=== PATIENT | female | born 1965 | race Caucasian/White ===

== ENCOUNTER 2024-10-15 16:57 | Emergency (ER) | payer OTHER, SELFPAY ==
--- NOTE | ~2024-10-15 | XR_ITS ---
HISTORY: fall, slip on ice COMPARISON: None TECHNIQUE: 4 views of the right knee were wrist were performed. FINDINGS: No acute fracture is identified. Cortical irregularity within the right scaphoid. Query prior fracture? The carpal arcs are intact. Mild radiocarpal joint space narrowing with sclerosis of the distal radius is present. The remaining visualized joint spaces are otherwise preserved. Bone mineralization is unremarkable. Moderate soft tissue swelling is noted. No radiopaque foreign body is identified. IMPRESSION: Cortical irregularity within the right mid scaphoid bone for which prior fracture deformity is suspec aleksander. Noncontrast enhanced CT may be performed (along with the patient history) for confirmation. Moderate soft tissue swelling, without additional bony abnormality appreciated. Reviewed, dictated and finalized at location A. ND SUPPORT EQUIPMENT MECHANIC IMPRESSION: Cortical irregularity within the right mid scaphoid bone for which prior fractu re deformity is suspected. Noncontrast enhanced CT may be performed (along with the patient history) for c onfirmation. Moderate soft tissue swelling, without additional bony abnormality appreciated.
[2024-10-15 17:03] VITALS: BP 180/105; PULSE 94; RESP 18; TEMP 36.7; O2SAT 100
--- NOTE | 2024-10-15 17:05 | ED.UPPEXIN ---
HPI - Extremity Injury (Upper) General Chief Complaint: Extremity Injury, Upper Stated Complaint: right wrist Time Seen by Provider: 10/15/24 17:01 Source: patient Mode of arrival: ambulatory Limitations: no limitations History of Present Illness HPI narrative: Patient is a 59 y/o female who presents to the ED with c/o R wrist pain. Patient reports she slipped on ice just prior to arrival and attempted to catch herself with her right arm. Complains pain to her right wrist. Denies any other injuries. Denies head injury or LOC. Denies elbow pain. Reports intermittent tingling in fingers, denies numbness. Related Data Allergies Allergy/AdvReac Type Severity Reaction Status Date / Time ampicillin Allergy Mild Vomiting Verified 10/15/24 17:04 Penicillins Allergy Unknown Vomiting Verified 10/15/24 17:04 Review of Systems Review of Systems: All systems reviewed & are unremarkable except as noted in HPI. All systems reviewed & are unremarkable except as noted in HPI and below PMFSH Social History Social History Alcohol intake: current Exam Narrative: GENERAL: Well appearing, obese with BMI of 37.5, non-toxic, in no acute distress. HEAD: Normocephalic, atraumatic. RESPIRATORY: Airway patent, respirations nonlabored. CARDIOVASCULAR: Regular rate and rhythm. Radial pulses strong and easily palpable. MUSCULOSKELETAL: Moves all extremities. No gross deformities. Limited range of motion of right wrist flexion due to pain. Tenderness to palpation over distal radius region. No anatomical snuffbox tenderness. Sensation intact throughout fingers. No significant tenderness throughout right elbow joint. SKIN: Warm, dry, normal color. NEURO: A&O X3. Speech clear. Steady gait. No ataxic movements. PSYCHIATRIC: Appropriate mood and affect. Normal interaction. Course Vital Signs Vital signs: Vital Signs Temperature 98.0 F 10/15/24 17:03 Pulse Rate 94 10/15/24 17:03 Respiratory Rate 18 10/15/24 17:03 Blood Pressure 180/105 H 10/15/24 17:03 Pulse Oximetry 100 10/15/24 17:03 Temperature 98.0 F 10/15/24 17:03 Pulse Rate 94 10/15/24 17:03 Respiratory Rate 18 10/15/24 17:03 Blood Pressure 180/105 H 10/15/24 17:03 Pulse Oximetry 100 10/15/24 17:03 MDM - Extremity Injury (Upper) MDM Narrative Medical decision making narrative: Patient?s injury is consistent with musculoskeletal etiology. No signs of neurologic or vascular compromise on physical examination. Compartments are soft without signs of compartment syndrome. XR R wrist negative for acute fracture. Shows possible abnormality of scaphoid bone consistent with previous fx, but patient is w/o any focal tenderness in this region/anatomical snuff box tenderness. Pain is consistent with R wrist sprain. Placed in MOISES bandage in the ED. Patient is felt to be stable for discharge home and further outpatient management and treatment. Discussed rice therapy, return precautions. Patient discharged in stable condition. Medical Records Attestation: I reviewed the patient's medical records. Imaging Data Attestation: I personally reviewed and interpreted this imaging study as follows: Radiologist's impression: ITS Impressions Wrist X-Ray 10/15/24 17:44 IMPRESSION: Cortical irregularity within the right mid scaphoid bone for which prior fracture deformity is suspected. Noncontrast enhanced CT may be performed (along with the patient history) for confirmation. Moderate soft tissue swelling, without additional bony abnormality appreciated. Discharge Plan Discharge Clinical Impression: Sprain and strain of right wrist Patient Disposition: Home, Self-Care Condition: Stable Instructions: Antibiotic Form, P.R.I.C.E. Treatment (ED), Wrist Sprain (ED) Additional Instructions: Your x-ray did not show any evidence of fracture. Utilize Moises bandage for compression and support. Recommend Tylenol and ibuprofen as needed for pain. Utilize ice to areas of pain. Follow-up with your primary care doctor for further evaluation if needed. Return to the ED if you experience worsening or severe pain, recurrent fall or injury, numbness, or any other symptoms of concern. Patient Language: French Follow-up/Referrals: Donald,Kenroy Clark MD [Primary Care Provider] - Time of Disposition: 17:58
== END 2024-10-15 18:16 | disposition home or self-care (01) ==
LOC: ANHED 18:10
PROVIDERS: Emergency Provider Physician Assistant; PCP Internal Medicine
DX: S63.501A Unspecified sprain of right wrist, initial encounter (principal); W00.0XXA Fall on same level due to ice and snow, initial encounter
CPT/HCPCS: 73110; 99283

== ENCOUNTER 2025-07-30 16:23 | Emergency (ER) | payer OTHER, SELFPAY ==
--- OUTSIDE RECORDS SUMMARY | 2005-11-12 10:15 | XMS_ITS | Continuity of Care Document ---
Author Organization [facility] Address [id number] [place] [address] [address] [place] [address] Phone Care Team Providers Care Fiberglass Quality Technician Name Role Phone Diandra, Edward Unavailable Unavailable Advance Directives Directive Yes / No Effective Date File Name No Information Encounters Encounter Description Practice Location Reason(s) For Visit Diagnoses Date Provider Providers Copied on Encounter [facility], [address], [place], [place], [id number], [place] tel:[phone] [facility] No Information Nov- 0-200 6 Doisy Edward. [address] , [address], [place], [address], [place]. tel:[phone] Family History Family Member Type Diagnosis Age At Onset No Information Payers Payer name Insurance type Covered alliance party ID Authoriza tion(s) No Information Social History Type Description Quantity Date Captured Comments Sex Female Smoking Status No Information Chief Complaint And Reason For Visit No Information Reason For Referral Reason For Referral No Information History Of Present Illness Encounter Date Complaint History Of Prese nt Illness No Information Functional Status Date Functional Assessmen t No Information Instructions Date Instruction Additional Infor mation No Information Assessments Type Assessment Date No Information Patient Care Teams Name Effective Dates (start - stop) Status Members No Information
--- NOTE | ~2025-07-30 | XR_ITS ---
XR thoracic spine 3V Indication: right sided upper back pain Comparison: None Findings: The vertebral heights are intact. No fracture or subluxation. The disc heights are intact. Soft tissues unremarkable Impression: No acute abnormality. Reviewed, dictated and finalized at location P. Impression: No acute abnormality.
--- NOTE | ~2025-07-30 | XR_ITS ---
EXAMINATION: XR shoulder RT min 2V, 07/30/2025 17:35 CDT HISTORY: right shoulder pain COMPARISON: No comparisons available. Findings: No acute fracture or malalignment. No significant degenerative changes. Soft tissues unremarkable. Impression: No acute fracture or malalignment. Reviewed, dictated and finalized at location P. Impression: No acute fracture or malalignment.
[2025-07-30 16:49] VITALS: BP 187/94; PULSE 85; RESP 15; TEMP 36.6; O2SAT 99
--- NOTE | 2025-07-30 17:27 | ED.UPPEXIN ---
HPI - Extremity Injury (Upper) General Chief Complaint: Back Pain/Injury <Elena Santoro PA-C - Last Filed: 08/05/25 17:48> Stated Complaint: urgent care sent pain in right shoulder htn <Elena Santoro PA-C - Last Filed: 08/05/25 17:48> Time Seen by Provider: 07/30/25 17:27 <Elena Santoro PA-C - Last Filed: 08/05/25 17:48> Focused HPI: This is a 60 year old female that presents to the ER for right shoulder pain. Started when she woke up Tuesday morning. No recent injuries. Denies fever, edema, erythema. GENERAL: Well-appearing, well-nourished, and in no acute distress. HEAD: Normocephalic, atraumatic. CHEST: No respiratory distress. HEART: Regular rate NEURO: ?Alert and oriented x3. Patient screened in triage and initial orders placed.? ?Additional care and disposition to be based upon?diagnostic testing and treatment. <Elena Santoro PA-C - Last Filed: 08/05/25 17:48> History of Present Illness HPI narrative: I agree with the HPI above. <Danyell Marcos APRN - Last Filed: 07/30/25 18:46> Related Data Allergies/Adverse Reactions: Allergies Allergy/AdvReac Type Severity Reaction Status Date / Time ampicillin Allergy Mild Vomiting Verified 07/30/25 16:53 Penicillins Allergy Unknown Vomiting Verified 07/30/25 16:53 <Elena Santoro PA-C - Last Filed: 08/05/25 17:48> Review of Systems Review of Systems: All systems reviewed & are unremarkable except as noted in HPI and below <Danyell Marcos APRN - Last Filed: 07/30/25 18:46> PMFSH Social History Social History: Social History Alcohol intake: current <JORDAN Payne Last Filed: 08/05/25 17:48> Exam Narrative: GENERAL: Well appearing, well-nourished, non-toxic, in no acute distress. HEAD: Normocephalic, atraumatic. NECK: Supple. No adenopathy, no masses. RESPIRATORY: Airway patent, respirations nonlabored. Clear to auscultation bilaterally, no rales, rhonchi, wheezing. CARDIOVASCULAR: Regular rate and rhythm without murmurs, rubs, or gallops. Peripheral pulses 2+ and equal bilaterally. ABDOMINAL: Soft, nontender, nondistended, no hepatosplenomegaly. Normoactive BS. MUSCULOSKELETAL: Moves all extremities. Strength/ROM intact without gross deformities. NO decreased ROM SKIN: Warm, dry, normal color. No rashes. NEURO: A&O X3. Speech clear. Cranial nerves II-XII intact. No ataxic movements. PSYCHIATRIC: Appropriate mood and affect. Normal interaction. <Danyell Marcos APRN - Last Filed: 07/30/25 18:46> Course Vital Signs Vital signs: Vital Signs Temperature 97.8 F 07/30/25 16:49 Pulse Rate 85 07/30/25 16:49 Respiratory Rate 15 07/30/25 16:49 Blood Pressure 187/94 H 07/30/25 16:49 Pulse Oximetry 99 07/30/25 16:49 Oxygen Delivery Room Air 07/30/25 16:49 Temperature 97.8 F 07/30/25 16:49 Pulse Rate 85 07/30/25 16:49 Respiratory Rate 15 07/30/25 16:49 Blood Pressure 187/94 H 07/30/25 16:49 Pulse Oximetry 99 07/30/25 16:49 Oxygen Delivery Room Air 07/30/25 18:00 <Elena Santoro PA-C - Last Filed: 08/05/25 17:48> Vital Signs Temperature 97.8 F 07/30/25 16:49 Pulse Rate 85 07/30/25 16:49 Respiratory Rate 15 07/30/25 16:49 Blood Pressure 187/94 H 07/30/25 16:49 Pulse Oximetry 99 07/30/25 16:49 Oxygen Delivery Room Air 07/30/25 16:49 Temperature 97.8 F 07/30/25 16:49 Pulse Rate 85 07/30/25 16:49 Respiratory Rate 15 07/30/25 16:49 Blood Pressure 187/94 H 07/30/25 16:49 Pulse Oximetry 99 07/30/25 16:49 Oxygen Delivery Room Air 07/30/25 18:00 <Danyell Marcos APRN - Last Filed: 07/30/25 18:46> MDM - Extremity Injury (Upper) MDM Narrative Medical decision making narrative: This is a 60 year old female that presents to the ER for right shoulder pain. Started when she woke up Tuesday morning. No recent injuries. Denies fever, edema, erythema. Patient Education/Shared MDM: Results of imaging shared with patient. she endorses improvement of symptoms following medication administration. Patient strongly advised to follow-up with her PCP as soon as possible. She will be discharged home with a prescription for tizanidine and lidocaine patches. Strict return precautions provided. Patient verbalized understanding and is in agreement with plan. Vital signs stable at time of discharge. All questions answered. <Danyell Marcos APRN - Last Filed: 07/30/25 18:46> Differential Diagnosis Differential diagnosis: Likely dislocation of shoulder, fracture of clavicle and other ( thoracic back pain, muscle strain) <Danyell Marcos APRN - Last Filed: 07/30/25 18:46> Imaging Data Attestation: I personally reviewed and interpreted this imaging study as follows: <Danyell Marcos APRN - Last Filed: 07/30/25 18:46> Radiologist's impression: Impressions Shoulder X-Ray 07/30/25 17:54 Impression: No acute fracture or malalignment. Thoracic Spine X-Ray 07/30/25 17:54 Impression: No acute abnormality. <Danyell Marcos APRN - Last Filed: 07/30/25 18:46> Discharge Plan Discharge Clinical Impression: Strain of muscle and tendon of back wall of thorax, initial encounter Back pain Qualifiers: Back pain location: thoracic back pain Chronicity: acute Back pain laterality: right Qualified Code(s): M54.6 - Pain in thoracic spine <Elena Santoro PA-C - Last Filed: 08/05/25 17:48> Patient Disposition: Home <JORDAN Payne Last Filed: 08/05/25 17:48> Condition: Stable <Elena Santoro PA-C - Last Filed: 08/05/25 17:48> Instructions: Antibiotic Form, Thoracic Back Strain (ED) <Elena Santoro PA-C - Last Filed: 08/05/25 17:48> Additional Instructions: Please return to the ER with any worsening symptoms. Follow-up with primary care provider if pain continues. You may take Tylenol and ibuprofen together for pain control. Please place lidocaine patches on the site of pain. You may also take muscle relaxants for pain control. <Elena Santoro PA-C - Last Filed: 08/05/25 17:48> Patient Language: Ukrainian <Elena Santoro PA-C - Last Filed: 08/05/25 17:48> Prescriptions: New lidocaine 5 % adhesive patch,medicated 1 patch topical DAILY Qty: 30 0RF Rx Instructions: leave on most painful area for up to 12 hrs tizanidine 4 mg capsule 4 mg PO TID PRN (Reason: muscle spasticity) Qty: 30 0RF <Elena Santoro PA-C - Last Filed: 08/05/25 17:48> Follow-up/Referrals: Donald,Kenroy Clark MD [Primary Care Provider, Unknown] <Elena Santoro PA-C - Last Filed: 08/05/25 17:48> Time of Disposition: 18:48 <Elena Santoro PA-C - Last Filed: 08/05/25 17:48> 18:48 <Danyell Marcos APRN - Last Filed: 07/30/25 18:46>
[2025-07-30] MEDS: LIDOCAINE 5% PATCH 1 PATCH TRANSDERM (18:59)
[2025-07-30] MEDS: KETOROLAC (*BKC) 60 MG/2 ML VIAL IM (19:00)
== END 2025-07-30 19:00 | disposition home or self-care (01) ==
PROVIDERS: Emergency Provider Registered Nurse; PCP Internal Medicine
DX: S29.012A Strain of muscle and tendon of back wall of thorax, initial encounter (principal); X58.XXXA Exposure to other specified factors, initial encounter
CPT/HCPCS: 72072; 73030; 96372; 99284; A9270; J1885; J7512